=== PATIENT | female | born 1960 | race Hispanic/Latino ===

== ENCOUNTER 2018-09-10 09:11 | Emergency (ER) | payer BC ==
[2018-09-10 09:27] VITALS: O2SAT 99
--- NOTE | 2018-09-10 10:16 | ED PDOC ---
Arrival/HPI - General Chief Complaint: Weakness/Neurological Deficit Historian: Patient - History of Present Illness Narrative History of Present Illness (Text): 09/10/18 10:12 57yo female with pmhx of hyperlipdemia who present to ED for complaint of diap horesis, weakness, nausea, vomiting, diarrhea and abdominal discomfort. States she was getting this symptoms every month with her period and since she became post menopausal she gets same symptoms twice a year. States it usually resolves with 800mg of Ibuprofen and rest. States she vomited the 400mg Motrin she took this morning , but her gave her another 400mg Motrin while she was in ED and she is starting to feel better. States she don't want any blood work, because she had normal blood work 2weeks ago and feeling better. She denies chest pain, SOB, abdominal pain, fever, chills, sick contact, travel, any other complaint. Past Medical History - Provider Review Nursing Documentation Reviewed: Yes - Infectious Disease Hx of Infectious Diseases: None - Reproductive Menopause: (post menopause) - Psychiatric Hx Psychophysiologic Disorder: No Hx Substance Use: No - Anesthesia Hx Anesthesia: No Family/Social History - Physician Review Nursing Documentation Reviewed: Yes Family/Social History: Unknown Family HX Smoking Status: Unknown If Ever Smoked Hx Alcohol Use: No Hx Substance Use: No Allergies/Home Meds Allergies/Adverse Reactions: Allergies ciprofloxacin [From Cipro] Allergy (Verified 09/10/18 09:25) PAIN metronidazole [From Flagyl] Allergy (Verified 09/10/18 09:25) RASH moxifloxacin [From Avelox] Allergy (Verified 09/10/18 09:25) PAIN seasonal Allergy (Uncoded 09/10/18 09:25) RASH Review of Systems - Physician Review All systems were reviewed & negative as marked: Yes - Review of Systems Constitutional: Fatigue Eyes: Normal ENT: Normal Respiratory: Normal Cardiovascular: Normal Gastrointestinal: Diarrhea, Nausea, Vomiting. absent: Abdominal Pain, Constipation, Hematochezia, Hematemesis Genitourinary Female: Normal Musculoskeletal: Normal Skin: Normal Neurological: Normal Endocrine: Normal Hemo/Lymphatic: Normal Psychiatric: Normal Physical Exam Vital Signs Reviewed: Yes Vital Signs Temp Pulse Resp BP Pulse Ox 09/10/18 09:25 97.4 F L 66 18 150/85 99 Temperature: Afebrile Blood Pressure: Normal Pulse: Regular Respiratory Rate: Normal Appearance: Positive for: Well-Appearing, Non-Toxic, Comfortable Pain Distress: None Mental Status: Positive for: Alert and Oriented X 3 - Systems Exam Head: Present: Atraumatic, Normocephalic Pupils: Present: PERRL Extroacular Muscles: Present: EOMI Conjunctiva: Present: Normal Mouth: Present: Moist Mucous Membranes Neck: Present: Normal Range of Motion Respiratory/Chest: Present: Clear to Auscultation, Good Air Exchange. No: Respiratory Distress, Accessory Muscle Use Cardiovascular: Present: Regular Rate and Rhythm, Normal S1, S2. No: Murmurs Abdomen: Present: Normal Bowel Sounds, Other (Soft). No: Tenderness, Distention, Peritoneal Signs, Rebound, Guarding, McBurney's Point Tender, Rovsing's Sign Present Back: Present: Normal Inspection Upper Extremity: Present: Normal Inspection. No: Cyanosis, Edema Lower Extremity: Present: Normal Inspection. No: Edema Neurological: Present: GCS=15, CN II-XII Intact, Speech Normal Skin: Present: Warm, Dry, Normal Color. No: Rashes Psychiatric: Present: Alert, Oriented x 3, Normal Insight, Normal Concentration Medical Decision Making ED Course and Treatment: 09/10/18 10:16 57yo female in ED for weakness, diaphoresis, nausea, vomiting x today. PT was offered lab and antimemesis, but she declined it. states she feels much better after taking second Motrin 400mg. Notes history of similar symptoms. Plan is to observe her in ED and if she continue to feel good she will be DC home. She agreed to the plan 09/10/18 13:59 Pt was observed in ED for 3hrs. On r evaluation she states that she feels fine and requested to be DC home. She was ambulatory in ED and neurologically intact. - Lab Interpretations Lab Results: Lab Results 09/10/18 09:17: POC Glucose (mg/dL) 104 Disposition/Present on Arrival - Present on Arrival Any Indicators Present on Arrival: No History of DVT/PE: No History of Uncontrolled Diabetes: No Urinary Catheter: No History of Decub. Ulcer: No History Surgical Site Infection Following: None - Disposition Have Diagnosis and Disposition been Completed?: Yes Diagnosis: Weakness Disposition: HOME/ ROUTINE Disposition Time: 12:20 Patient Plan: Discharge Condition: STABLE Discharge Instructions (ExitCare): Weakness (ED) Additional Instructions: Drink plenty of fluid and rest Follow up with your Doctor Return to ED for any new or worsening symptoms Referrals: Evin Mora MD [Family Provider] - Follow up with primary Forms: [facility] (American), WORK NOTE
[2018-09-10 10:38] VITALS: TEMP 98.5
[2018-09-10 12:25] VITALS: BP 109/68; PULSE 84; RESP 18
== END 2018-09-10 12:30 | disposition home or self-care (01) ==
LOC: ED 09:11
DX: R53.1 Weakness (principal)